=== PATIENT | male | born 1955 | race Caucasian/White ===

== ENCOUNTER → 2017-05-06 | Outpatient (CLI) | payer OTHER | END | disposition home or self-care (01) | LOC: PCVCIMAG 16:14 | DX: I25.10 Atherosclerotic heart disease of native coronary artery without angina pectoris (principal); I10 Essential (primary) hypertension; E78.00 Pure hypercholesterolemia, unspecified; M21.371 Foot drop, right foot; R53.1 Weakness; H53.9 Unspecified visual disturbance; R94.31 Abnormal electrocardiogram [ECG] [EKG]; R09.89 Other specified symptoms and signs involving the circulatory and respiratory systems; Z95.1 Presence of aortocoronary bypass graft; Z79.82 Long term (current) use of aspirin | CPT/HCPCS: 80061; 93005; 93880; G0463 ==

== ENCOUNTER → 2017-09-30 | Outpatient (CLI) | payer OTHER ==
[~2017-09-30] MED LIST: REGADENOSON 0.4 MG/5 ML DISP.SYRIN. IV ONE
--- NOTE | 2017-10-04 10:02 | PCVCIMAG ---
APPROVED REPORT Imaging Protocol: Rest Tc-99m/Stress Tc-99m 1 day Study performed: 09/30/2017 10:19:23 Indication: CAD Patient Location: Out-Patient Stress Nurse: Elma Onofre RN, Noemi Huang RN [place] Tech:Opal Bolivardeisy [facility] Ht: 5 ft 9 in Wt: 205 lbs BSA: 2.09 m2 HR: 62 bpm BP: 150/91 mmHg BMI: 30.2 Rhythm: NSR, T Wave Abn Medical History Medical History: HTN, Hyperlipidemia, CVD, CAD, Age Medications: Amlodipine, aspirin, irbesartan Allergies: Statins Previous Cardiac Procedures: CABG Pretest Chest Pain Characteristics: No chest pain Physical Disabilities: Foot drop Resting Data Rest SPECT myocardial perfusion imaging was performed in supine position 45 minutes following the intravenous injection of 11.2 mCi of Tc-99m Sestamibi. Time of rest injection: 0940 Date: 09/30/2017 Administration Route: IV Administration Site: Left Arm Pharmacologic Stress Pharmacologic stress test was performed by injecting Regadenoson 0.4 mg IV push over 10-15 seconds immediately followed by the intravenous injection of 32.7 mCi of Tc-99m Sestamibi. Time of stress injection: 1100 Date: 09/30/2017 Administration Route: IV Administration Site: Left Arm Gated Stress SPECT was performed 45 minutes after stress injection. The images were gated to evaluate regional wall motion and calculate left ventricular ejection fraction. Comments Prior Nuclear Stress Test 04/2015: SCINTIGRAPHIC EVIDENCE OF INFERIOR LATERAL PHOTOPENIA WITHOUT REVERSIBILITY OR WALL MOTION ABNORMALITY. PRESERVED LV FUNCTION Stress Test Details Stress Test: Pharmacologic stress was paired with low level exercise. Reason for pharmacologic stress test: physical limitation; foot drop. HRMax Heart Rate (APMHR): 159 bpm Resting HR: 62 bpmTarget HR (85% APMHR): 135 bpm Max HR Achieved: 85 bpm % of APMHR: 53 Recovery HR: 57 bpm BP Resting BP: 150/91 mmHg Recovery BP: 154/78 mmHg ECG Resting ECG: SR with NS T wave abnormality Stress ECG: SR with NS T wave abnormality Recovery ECG: SB with NS T wave abnormality Clinical Reason for Termination: Completed protocol Stress Symptoms: Dyspnea, Lightheaded Exercise duration: 4 min 00 sec Exercise capacity: 1.6 METs Symptoms resolved with caffeine. Stress ECG Conclusion ECG: Non-ischemic Study Quality Study: Good Study Data Post stress, the left ventricular ejection was 69%.. SSS: 3 SRS: 2 SDS: 1 TID = 0.94. Perfusion Small sized area of mild reversible ischemia involving the mid/apical inferolateral left ventricle consistent with a circumflex distribution. Wall Motion Normal left ventricular size and function with no regional wall motion abnormalities. Nuclear Conclusion Small sized area of mild reversible ischemia involving the mid/apical inferolateral left ventricle consistent with a circumflex distribution has developed since April 2015. Normal left ventricular size and function with no regional wall motion abnormalities. Post stress, the left ventricular ejection was 69%. Interpreted by: Nakul Salter MD Electronically Approved: 09/30/2017 20:29:28 <Conclusion> ECG: Non-ischemic
== END | disposition home or self-care (01) ==
LOC: PCVCIMAG 11:57
PROVIDERS: ATTEND Internal Medicine Cardiovascular Disease
DX: I25.10 Atherosclerotic heart disease of native coronary artery without angina pectoris (principal)
CPT/HCPCS: 78452; 93017; A9500; J2785